=== PATIENT | male | born 1985 | race Caucasian/White ===

== ENCOUNTER → 2022-12-26 | Outpatient (CLI) | payer OTHER ==
[2022-12-27 14:06] LABS: Protein, Urine Quantitative 16.1 mg/dL (0.0-11.9)
== END | disposition home or self-care (01) ==
LOC: LAB SHORT 09:15 → LAB 09:15
PROVIDERS: Internal Medicine Nephrology
DX: N18.1 Chronic kidney disease, stage 1 (principal); D63.1 Anemia in chronic kidney disease; N25.81 Secondary hyperparathyroidism of renal origin; E55.9 Vitamin D deficiency, unspecified; E78.00 Pure hypercholesterolemia, unspecified; R76.9 Abnormal immunological finding in serum, unspecified; R94.5 Abnormal results of liver function studies; R94.6 Abnormal results of thyroid function studies
CPT/HCPCS: 81050; 82043; 82570; 84156

== ENCOUNTER → 2024-05-22 | Outpatient (CLI) | payer OTHER ==
[~2024-05-22] MED LIST: SERT100; Seroquel Xr50 MG
[2024-05-22 18:07] LABS: Albumin, Blood 4.3 g/dL (3.4-5.0); Alk Phos 65 U/L (50-136); Anion Gap 10 mmol/L (3-11); Aspartate Aminotrans (AST/SGOT 38 U/L (12-37); Bilirubin, Total 0.3 mg/dL (0.1-1.0); Blood Urea Nitrogen 14 mg/dL (8-24); CHOL/HDL RATIO 5.6; CO2, Blood 28 mmol/L (21-32); Calcium, Blood 9.6 mg/dL (8.5-10.1); Chloride, Blood 100 mmol/L (98-108); Cholesterol 203 mg/dL (50-200); Creatinine, Blood 0.94 mg/dL (0.60-1.20); Globulin, Blood 4.1 g/dL (2.2-4.0); Glomerular Filtration Rate 108 (60-); Glucose, Blood 89 mg/dL (70-99); HDL Cholesterol 36 mg/dL (>39); LDL/HDL RATIO 2.9; Low Density Lipoprotein Chol 103 mg/dL (0-110); Sodium, Blood 134 mmol/L (136-145); Total Protein, Blood 8.4 g/dL (6.4-8.2); Triglycerides 320 mg/dL (30-140); Very Low Density Lipoprot Chol 64 mg/dL (6-28)
[2024-05-22 18:13] LABS: Alanine Aminotransfer (ALT/SGP 65 U/L (12-78); Thyroid Stimulating Hormone 0.972 uIU/mL (0.360-4.800)
== END ==
LOC: LAB 16:17 → LAB SHORT 16:17
PROVIDERS: Family Medicine
DX: Z51.81 Encounter for therapeutic drug level monitoring (principal); Z79.899 Other long term (current) drug therapy
CPT/HCPCS: 80053; 80061; 83036; 84443

== ENCOUNTER 2024-09-08 18:22 | Observation (INO) | payer OTHER ==
[~2024-09-08] VITALS: Ht 175.3 cm; Wt 115.3 kg
[~2024-09-08 18:22] MED LIST changes: -ERGO50000 PO; -FISH OIL 1,0001 EA10 PO; -Lisinopril-Hct1 EAC4 PO; -MELATONIN5 M1 PO; -METO100ER PO; -MULVITA PO; -OXAYDO5 M1 PO; -PARO20 PO
[2024-09-08] MEDS ORDERED: Ampicillin Sod/Sulbactam Sod 3 GM in NS 100 ML IV ONE (23:45)
[2024-09-08] MEDS ORDERED: NS 1,000 ML IV SCH (23:45)
[2024-09-08] MEDS ORDERED: Ondansetron HCl 2 MG / ML 2ML Vial IV PRN (23:55)
[2024-09-08] MEDS ORDERED: HYDROmorphone HCl/Pf 1MG SYR IV PRN (23:55)
[2024-09-08] MEDS ORDERED: Lactated Ringer's 1,000 ML IV SCH (23:55)
[2024-09-09] VITALS (18 sets, daily range): BP systolic 128–189; BP diastolic 72–107
[2024-09-09] MEDS ORDERED: Ampicillin Sod/Sulbactam Sod 3 GM in NS 100 ML IV SCH
[2024-09-09] MEDS ORDERED: PARO20 PO (02:31)
[2024-09-09] MEDS ORDERED: Lactated Ringer's 1,000 ML IV SCH ×2 (06:30→17:45)
[2024-09-09] MEDS ORDERED: Lisinopril-Hct1 EAC4 PO (06:56)
[2024-09-09] MEDS ORDERED: METO100ER PO (06:56)
[2024-09-09] MEDS ORDERED: MELATONIN5 M1 PO (06:56)
[2024-09-09] MEDS ORDERED: ERGO50000 PO (06:58)
[2024-09-09] MEDS ORDERED: MULVITA PO (06:58)
[2024-09-09] MEDS ORDERED: FISH OIL 1,0001 EA10 PO (06:59)
--- NOTE | 2024-09-09 07:39 | NUR ---
PT HAD NO CHANGES SINCE ARRIVING TO FLOOR. PT REP PAIN KARLOS 3-11/20, DENIED N/V. PT HAS BEEN NPO, AWAITING SURGICAL PLANNING. IVF AND ABX CONT PER EMAR. MED REC REV W/STEP MOTHER AND UPDATED THIS AM.
[2024-09-09] MEDS ORDERED: Ondansetron HCl 2 MG / ML 2ML Vial IV PRN ×2 (09:35→18:35)
[2024-09-09] MEDS ORDERED: Acetaminophen 325 MG TABLET PO PRN (09:35)
[2024-09-09] MEDS ORDERED: OxyCODONE HCL 5 MG TAB PO PRN (09:35)
[2024-09-09] MEDS ORDERED: FLU VACC TS2024-25(6MOS UP)/PF 45 MCG/0.5 ML SYRINGE IM SCH (09:35)
[2024-09-09] MEDS ORDERED: HYDROmorphone HCl/Pf 1MG SYR IV PRN ×3 (09:40→18:40)
[2024-09-09] MEDS ORDERED: Ketorolac Tromethamine 15mg Vial IV PRN (10:20)
[2024-09-09] MEDS ORDERED: Lisinopril 10 MG Tab PO SCH (11:50)
[2024-09-09] MEDS ORDERED: Metoprolol Succinate 50 MG TABCR PO SCH (11:50)
--- NOTE | 2024-09-09 13:33 | NUR ---
CONTINUES TO WAIT FOR OR TIME. IND IN ROOM. DENIES SIGNIFICANT PAIN OR N/V. DENIES NEEDS.
--- NOTE | 2024-09-09 17:50 | NUR ---
TO PRE OP AREA VIA WC
[2024-09-09] MEDS ORDERED: Bupivacaine 0.5% HCl 5 MG/ML 30MLVIAL ONE (18:01)
[2024-09-09] MEDS ORDERED: FentaNYL Citrate 50 MCG/ML 2 ML Injection ONE (18:07)
[2024-09-09] MEDS ORDERED: propofoL 20 ML IV ONE (18:07)
[2024-09-09] MEDS ORDERED: Midazolam HCl 1MG / ML 2ML Vial ONE (18:10)
[2024-09-09] MEDS ORDERED: Midazolam HCl 1MG / ML 2ML Vial IV ONE (18:20)
[2024-09-09] MEDS ORDERED: Labetalol HCL 5 MG/ML 4ML Injection (Single Dose) IV PRN ×2 (18:35)
[2024-09-09] MEDS ORDERED: FentaNYL Citrate 50 MCG/ML 2 ML Injection IV PRN ×6 (18:35→18:40)
[2024-09-09] MEDS ORDERED: Rocuronium Bromide 10 MG/ML 5ML Injection IV ONE (19:03)
[2024-09-09] MEDS ORDERED: Ondansetron HCl 2 MG / ML 2ML Vial ONE (19:03)
[2024-09-09] MEDS ORDERED: Ketorolac Tromethamine 30mg Vial ONE (19:03)
[2024-09-09] MEDS ORDERED: Dexamethasone Sod Phos 10 MG/ML 1ML VIAL ONE (19:03)
[2024-09-09] MEDS ORDERED: Neostigmine Methylsulfate 5MG/5ML SYR ONE (19:05)
[2024-09-09] MEDS ORDERED: Glycopyrrolate 0.2 MG/ML 5ML VIAL ONE (19:05)
--- NOTE | 2024-09-09 19:54 | NUR ---
TOOK POST OP REPORT FROM [employer] AMY. PT HAS 3 LAP SITES WITH SURGICAL GLUE OVER EACH SITE.
[2024-09-09] MEDS ORDERED: Lactobacil 2-S.Thermo-Bifido 1 1 Cap PO SCH (21:00)
[2024-09-09] MEDS ORDERED: QUEtiapine Fumarate 100 MG Tab PO SCH (21:00)
--- NOTE | 2024-09-09 22:51 | NUR ---
PT ARRIVED FROM PACU @ 2014 WITH LR INFUSING TO GRAVITY. PT HAS 3 LAP SITES FROM [facility]. PT HAS NO C/O OF PAIN.
--- NOTE | 2024-09-10 03:41 | NUR ---
SHIFT SUMMARY NOC PT A/O X 4. PLEASANT AND COOPERATIVE WITH CARE. POST OP VSS. PT DAY 1 POST OP LAP APPY. PT HAS 3 LOWER QUADRANT LAP SITES WITH SURGICAL GLUE IN PLACE. PT HAS NOT HAD C/O OF PAIN SINCE PROCEDURE. PT ON REGULAR DIET. PT MOTHER STAYED WITH PT DURING NIGHT. PT CURRENTLY RESTING WITH BED IN LOWEST POSITION, AND CALL LIGHT WITHIN REACH.
[2024-09-10 03:43] VITALS: BP 137/89
[2024-09-10 07:22] VITALS: BP 143/85
[2024-09-10] MEDS ORDERED: HydroCHLOROthiazide 25 mg Tab PO SCH (09:00)
[2024-09-10] MEDS ORDERED: PARoxetine HCl 20 MG Tab PO SCH (09:00)
[2024-09-10] MEDS ORDERED: Metoprolol Succinate 50 MG TABCR PO SCH (09:00)
[2024-09-10] MEDS ORDERED: Lisinopril 10 MG Tab PO SCH (09:00)
[2024-09-10] MEDS ORDERED: Enoxaparin 40 MG/0.4 ML SYR SC SCH (09:00)
[2024-09-10] MEDS ORDERED: OXAYDO5 M1 PO (10:07)
--- NOTE | 2024-09-10 10:50 | NUR ---
DISCHARGE SUMMARY POD1 LAP APPY, A/XO4, VSS, TOLERATING PO, PAIN WELL MANAGED, VOIDING, LAP SITES C/D/I WITH WOUND GLUE IN PLACE AND INTACT. DISCUSSED DSICHARGE INSTRUCTIONS WITH HIM INCLUDING HOME CARE, MEDICATIONS, AND FOLLOW UP APPOINTMENTS. IV ACCESS REMOVED DURING DC INSTRUCTIONS, NO QUESTIONS AT THIS TIME, PT DECLINED ESCORT OUT AND LEFT AMBULATORY.
== END 2024-09-10 10:44 | disposition home or self-care (01) ==
LOC: ER 18:22 → SURS 18:23 → ERHOLD 18:23 → SURS 09-09 02:07
PROVIDERS: ADMIT Surgery
PROC: 0DTJ4ZZ Resection of Appendix, Percutaneous Endoscopic Approach (ICD-10-PCS; principal; 2024-09-09 15:00)
DX: K35.80 Unspecified acute appendicitis (principal); R10.31 Right lower quadrant pain; Q43.3 Congenital malformations of intestinal fixation; I10 Essential (primary) hypertension; Z79.899 Other long term (current) drug therapy
CPT/HCPCS: 74177; 80053; 85025; 88304; 96366; 96374-59; 96375; 96376; 99285-25; A9270; G0378; J0295; J1100; J1885; J2250; J2405; J2704; J2710; J3010; J7030; J7120; Q9967

== ENCOUNTER → 2024-09-08 | Outpatient (CLI) | payer OTHER ==
[~2024-09-08] MED LIST changes: +ERGO50000 PO; +FISH OIL 1,0001 EA10 PO; +Lisinopril-Hct1 EAC4 PO; +MELATONIN5 M1 PO; +METO100ER PO; +MULVITA PO; +OXAYDO5 M1 PO; +PARO20 PO; -Seroquel Xr50 MG; +Seroquel Xr50 MG PO
[2024-09-08 16:23] LABS: BASOPHILS ABSOLUTE AUTO 0.06 K/mm3 (0.00-0.23); BASOPHILS PERCENT AUTO 1 % (0-2); EOSINOPHILS ABSOLUTE AUTO 0.29 K/mm3 (0.00-0.68); EOSINOPHILS PERCENT AUTO 2 % (0-6); Hematocrit 46.6 % (37.0-53.0); Hemoglobin 16.1 g/dL (13.5-17.5); IMMATURE GRAN ABSOLUTE AUTO 0.04 K/mm3 (0.00-0.10); IMMATURE GRAN PERCENT AUTO 0 % (0-1); LYMPHOCYTES ABSOLUTE AUTO 3.25 K/mm3 (0.84-5.20); LYMPHOCYTES PERCENT AUTO 26 % (21-46); MONOCYTES ABSOLUTE AUTO 1.14 K/mm3 (0.16-1.47); MONOCYTES PERCENT AUTO 9 % (4-13); Mean Corpuscular HGB Conc 34.5 g/dL (31.5-36.5); Mean Corpuscular Volume 84 fL (80-100); NEUTROPHILS ABSOLUTE AUTO 7.51 K/mm3 (1.96-9.15); NEUTROPHILS PERCENT AUTO 61 % (41-73); Platelet Count 295 K/mm3 (150-400); RDW Coefficient Variation 12.6 % (11.7-14.2); RDW Standard Deviation 38.4 fL (35.1-46.3); Red Blood Cell Count 5.55 M/mm3 (4.30-5.90); White Blood Cell Count 12.29 K/mm3 (4.00-11.30)
[2024-09-08 16:33] LABS: Albumin, Blood 4.6 g/dL (3.4-5.0); Albumin/Globulin Ratio 1.1 (0.8-1.8); Bilirubin, Total 0.5 mg/dL (0.1-1.0); Bun/Creatinine Ratio 9.2 (12.0-20.0); Calcium, Blood 10.3 mg/dL (8.5-10.1); Creatinine, Blood 1.2 mg/dL (0.60-1.20); Globulin, Blood 4.1 g/dL (2.2-4.0); Potassium, Blood 3.8 mmol/L (3.5-5.5); Total Protein, Blood 8.7 g/dL (6.4-8.2)
== END | disposition home or self-care (01) ==
LOC: LAB SHORT 16:19
PROVIDERS: Physician Assistant Medical
DX: R10.31 Right lower quadrant pain (principal)
CPT/HCPCS: 80053; 85025

== ENCOUNTER 2025-05-23 18:00 | Emergency (ER) | payer OTHER ==
[~2025-05-23] VITALS: Ht 175.3 cm; Wt 99.8 kg
[~2025-05-23 18:00] MED LIST changes: +ERGO50000 PO; +FISH OIL 1,0001 EA10 PO; +Lisinopril-Hct1 EAC4 PO; +MELATONIN5 M1 PO; +METO100ER PO; +MULVITA PO; +OXAYDO5 M1 PO; +PARO20 PO
[2025-05-23] MEDS ORDERED: LORazepam 2 MG/ML 1ML Injection IV ONE (18:15)
[2025-05-23] MEDS ORDERED: NS 1,000 ML IV SCH ×2 (18:15→20:20)
[2025-05-23 18:34] LABS: BASOPHILS ABSOLUTE AUTO 0.09 K/mm3 (0.00-0.23); BASOPHILS PERCENT AUTO 1 % (0-2); EOSINOPHILS ABSOLUTE AUTO 0.34 K/mm3 (0.00-0.68); EOSINOPHILS PERCENT AUTO 2 % (0-6); Hematocrit 41.9 % (37.0-53.0); Hemoglobin 14.4 g/dL (13.5-17.5); IMMATURE GRAN ABSOLUTE AUTO 0.29 K/mm3 (0.00-0.10); IMMATURE GRAN PERCENT AUTO 2 % (0-1); LYMPHOCYTES ABSOLUTE AUTO 2.44 K/mm3 (0.84-5.20); LYMPHOCYTES PERCENT AUTO 16 % (21-46); MONOCYTES ABSOLUTE AUTO 0.69 K/mm3 (0.16-1.47); MONOCYTES PERCENT AUTO 5 % (4-13); Mean Corpuscular HGB Conc 34.4 g/dL (31.5-36.5); Mean Corpuscular Volume 86 fL (80-100); NEUTROPHILS ABSOLUTE AUTO 11.50 K/mm3 (1.96-9.15); NEUTROPHILS PERCENT AUTO 75 % (41-73); NRBC ABSOLUTE 0.00 K/mm3 (0.00-0.02); NRBC Auto 0.0 /100 WBC (0.0-0.2); Platelet Count 241 K/mm3 (150-400); RDW Coefficient Variation 12.8 % (11.7-14.2); RDW Standard Deviation 39.8 fL (35.1-46.3)
[2025-05-23 18:54] LABS: Ethanol (Alcohol), Blood, Med <3 mg/dL
[2025-05-23] MEDS ORDERED: Propofol 10mg/ml 20 ml Vial (Procedural) IV SCH (19:00)
[2025-05-23 19:20] LABS: Alanine Aminotransfer (ALT/SGP 38 U/L (12-78); Albumin, Blood 3.9 g/dL (3.4-5.0); Albumin/Globulin Ratio 1.1 (0.8-1.8); Anion Gap 15 mmol/L (3-11); Aspartate Aminotrans (AST/SGOT 48 U/L (12-37); Bilirubin, Total 0.4 mg/dL (0.1-1.0); Blood Urea Nitrogen 11 mg/dL (8-24); CO2, Blood 23 mmol/L (21-32); Calcium, Blood 9.0 mg/dL (8.5-10.1); Chloride, Blood 103 mmol/L (98-108); Creatinine, Blood 0.86 mg/dL (0.60-1.20); Globulin, Blood 3.6 g/dL (2.2-4.0); Glucose, Blood 211 mg/dL (70-99); Magnesium, Blood 2.6 mg/dL (1.6-2.4); Potassium, Blood 4.7 mmol/L (3.5-5.5); Sodium, Blood 136 mmol/L (136-145); Total Protein, Blood 7.5 g/dL (6.4-8.2)
[2025-05-23] MEDS ORDERED: ACET500 PO (19:37)
[2025-05-23] MEDS ORDERED: IBUP600 PO (19:37)
[2025-05-23] MEDS ORDERED: Ondansetron HCl 2 MG / ML 2ML Vial IV ONE (20:10)
[2025-05-23] MEDS ORDERED: Morphine Sulfate 4 MG/1 ML Injection IV ONE (20:10)
[2025-05-23 21:18] LABS: Source, Urine Clean Catch
[2025-05-23 21:24] LABS: Bilirubin, Urine Neg (Neg); Glucose Qualitative, Urine 2+ (Neg); Ketones, Urine 1+ (Neg); Leukocyte Esterase, Urine Neg (Neg); Protein, Urine 1+ (Neg); Specific Gravity, Urine 1.025 (1.003-1.022); Urobilinogen, Urine NORM (Normal)
[2025-05-23 21:31] LABS: Color, Urine Yellow (P-Yellow); White Blood Cells, Urine Not Seen /hpf (0-5)
[2025-05-23 21:39] LABS: U Amphetamine Screen Not Detected; U Barbiturate Screen Not Detected; U Benzodiazapine Screen Not Detected; U Buprenorphine Screen Not Detected; U Cannabinoids Screen Not Detected; U Cocaine Screen Not Detected; U Methadone Screen Not Detected; U Methamphetamine Screen Not Detected; U Opiates Screen Not Detected; U Oxycodone Screen Not Detected; U Phencyclidine Screen Not Detected
[2025-05-23 22:35] VITALS: BP 165/107
== END 2025-05-23 22:35 | disposition home or self-care (01) ==
LOC: ER 18:00
PROVIDERS: Emergency Medicine
DX: R56.9 Unspecified convulsions (principal); S42.291A Other displaced fracture of upper end of right humerus, initial encounter for closed fracture; Z79.899 Other long term (current) drug therapy; X58.XXXA Exposure to other specified factors, initial encounter
CPT/HCPCS: 23650; 70450; 71045; 73020; 73030; 80053; 80320; 81001; 82947; 83605; 83735; 84146; 85025; 93005; 93010; 96361-59; 96374-59; 96375-59; 99285-25; A9270; J2060; J2405; J2704; J7030